=== PATIENT | male | born 1950 | race Caucasian/White ===

== ENCOUNTER 2022-11-18 07:20 | Day surgery (SDC) | payer OTHER ==
[~2022-11-18] VITALS: Ht 177.8 cm; Wt 91.6 kg
[~2022-11-18 07:20] MED LIST: CEFAZOLIN SOD 1 GM in D5W 50 ML IV ONE
[2022-11-18] MEDS ORDERED: DEXAMETHASONE SOD PHOSPHATE 4 MG/ML VIAL ONE (09:26)
[2022-11-18] MEDS ORDERED: NS IRRIG SOLN 5000 ML IR ONE (09:26)
[2022-11-18] MEDS ORDERED: ONDANSETRON HCL 4 MG/2 ML VIAL ONE (09:26)
[2022-11-18] MEDS ORDERED: fentaNYL CITRATE/PF 100 MCG/2 ML AMP ONE (09:26)
[2022-11-18] MEDS ORDERED: KETOROLAC TROMETHAMINE 30 MG VIAL ONE ×2 (09:26→13:30)
[2022-11-18] MEDS ORDERED: NS IRRIG SOLN 1000 ML IR ONE (09:26)
[2022-11-18] MEDS ORDERED: ceFAZolin SODIUM 1 GM VIAL ONE (09:26)
[2022-11-18] MEDS ORDERED: BUPIVACAINE /PF 0.25% 30 ML VIAL INJ ONE (09:26)
[2022-11-18] MEDS ORDERED: LIDOCAINE 2%, 20 ML MDV ONE (09:26)
[2022-11-18] MEDS ORDERED: LR 1,000 ML IV.SOLN IV ONE (09:26)
[2022-11-18] MEDS ORDERED: SUGAMMADEX SODIUM 200 MG/2 ML VIAL IV ONE (09:26)
[2022-11-18] MEDS ORDERED: MIDAZOLAM HCL 2 MG/2 ML VIAL (VERSED) ONE (09:26)
[2022-11-18] MEDS ORDERED: PROPOFOL 200MG/ 20ML VIAL (DIPRIVAN) IV ONE (09:26)
[2022-11-18] MEDS ORDERED: ROCURONIUM BROMIDE 10 MG/ML (ZEMURON) ONE (09:26)
[2022-11-18] MEDS ORDERED: DESFLURANE 15 MIN GAS INH ONE (09:26)
[2022-11-18] MEDS ORDERED: MEPERIDINE HCL/PF 25 MG/ML DISP.SYRIN IVP PRN (10:45)
[2022-11-18] MEDS ORDERED: LR 1,000 ML IV SCH (10:45)
[2022-11-18] MEDS ORDERED: LABETALOL 100 MG/ 20ML VIAL IVP PRN (10:45)
[2022-11-18] MEDS ORDERED: HYDROmorphone 1 MG/ML INJ. CARTRIDGE IVP PRN ×2 (10:45)
[2022-11-18] MEDS ORDERED: hydrALAZINE HCL 20 MG/ML VIAL IVP PRN (10:45)
[2022-11-18] MEDS ORDERED: METOCLOPRAMIDE HCL 10 MG/2 ML VIAL IVP PRN (10:45)
[2022-11-18] MEDS ORDERED: ACETAMINOPHEN I.V. 1000 MG 100 ML IV ONE (11:02)
[2022-11-18] MEDS ORDERED: KETOROLAC TROMETHAMINE 30 MG VIAL IVP ONE (13:30)
[2022-11-18] MEDS ORDERED: HYDROmorphone 1 MG/ML INJ. CARTRIDGE IVP ONE (13:30)
[2022-11-18] MEDS ORDERED: HYDROmorphone 1 MG/ML INJ. CARTRIDGE ONE (13:31)
[2022-11-18] MEDS: HYDROmorphone 1 MG/ML INJ. CARTRIDGE ONE ×2 (13:40→13:45)
[2022-11-18 13:41] VITALS: O2SAT 98
[2022-11-18] MEDS ORDERED: HYDROcodone/ACETAMIN 10-325 MG TAB PO PRN (13:45)
[2022-11-18] MEDS ORDERED: KETOROLAC TROMETHAMINE 15 MG VIAL IVP ONE (13:45)
[2022-11-18 16:20] VITALS: BP_SYST 156; PULSE 98; RESP 20
== END 2022-11-18 16:03 | disposition home or self-care (01) ==
LOC: SDS 07:20 → SMU 07:22 → SDS 16:03
PROVIDERS: ATTEND Orthopaedic Surgery
DX: S46.112A Strain of muscle, fascia and tendon of long head of biceps, left arm, initial encounter (principal); M25.512 Pain in left shoulder; M75.102 Unspecified rotator cuff tear or rupture of left shoulder, not specified as traumatic; S43.432A Superior glenoid labrum lesion of left shoulder, initial encounter; M75.22 Bicipital tendinitis, left shoulder; I10 Essential (primary) hypertension; E78.5 Hyperlipidemia, unspecified; W19.XXXA Unspecified fall, initial encounter; Y93.89 Activity, other specified; Y92.89 Other specified places as the place of occurrence of the external cause; Y99.8 Other external cause status
CPT/HCPCS: 87081; 29827; 29828; 29826; 64415; 88304; J3490 ×2; J0690; J1100; J1885; J2001; J3465; J2405; J2704; J3010; J1170; J7060; J7120; C1713 ×3; A4565; J0131